=== PATIENT | female | born 1965 | race Caucasian/White ===

== ENCOUNTER 2022-06-01 21:43 | Inpatient (IN) ==
[2022-06-01] MEDS ORDERED: ACETAMINOPHEN 1,000 MG/100 ML VIAL IV STA (21:57)
[2022-06-01] MEDS ORDERED: SODIUM CHLORIDE 0.9% 1000ML 1,000 ML IV SCH (22:00)
[2022-06-01 22:09] LABS: Basophils # (auto) 0.07 K/uL (0-0.2); Basophils % (auto) 0.7 %; Eosinophils % (auto) 2.9 %; Hematocrit (blood only) 33.4 % (34.1-44.9); Hemoglobin 11.7 g/dl (12.0-16.0); Immature Granulocytes # (auto) 0.04 K/uL (0.00-0.02); Immature Granulocytes % (auto) 0.4 %; Lymphocytes # (auto) 1.79 K/uL (1.2-3.4); Lymphocytes % (auto) 17.1 %; Mean Corpuscular Hemoglobin 31.6 pg (25.0-34.0); Mean Corpuscular Volume 90.3 fL (80.0-100.0); Mean Platelet Volume 9.4 fL (9.4-12.3); Monocytes % (auto) 11.5 %; Neutrophils # (auto) 7.06 K/uL (1.4-6.5); Neutrophils % (auto) 67.4 %; Platelet Count 385 K/uL (130-400); RDW Coefficient of Variation 12.1 % (11.5-14.5); RDW Standard Deviation 40.1 fL (36.4-46.3); White Blood Count 10.46 K/ul (4.8-10.8)
[2022-06-01 22:28] LABS: Acetaminophen < 3 ug/ml (10-30); Salicylate < 3.0 mg/dl (3.0-30)
[2022-06-01 22:29] LABS: Albumin Globulin Ratio 1.5 (0.9-2); Albumin Level 4.3 gm/dl (3.4-5.0); BUN Creatinine Ratio 16.2 (10-20); Bilirubin,Total 0.5 mg/dl (0.2-1.0); Calcium 9.4 mg/dl (8.5-10.1); Creatinine Clr Calc Pharmacy 48.5 ml/min; Est GFR (African American) 64.7 ml/min; Est GFR (Non-African American) 55.9 ml/min; Globulin 2.9 gm/dl (2.5-4.0); Potassium 4.3 mmol/L (3.5-5.1); Total Protein 7.2 gm/dl (6.0-8.3)
--- NOTE | 2022-06-01 22:30 | Emergency Department Note ---
History of Present Illness General Chief complaint: Back Injury/Pain Stated complaint: Back Pain, Possible Overdose Time Seen by Provider: 06/01/22 21:47 History of Present Illness Maximum Pain Intensity: 6 This 57-year-old on high-dose narcotics presents to the ER complaining of ongoing back pain who was slow to respond and the boyfriend sent her in for possible overdose Location: Generalized Quality: Painful Severity: Moderate Duration: Ongoing Timing: Ongoing Context: Patient's boyfriend was concerned and sent her in Modifying factors: better with rest; worse with activity Patient is slow to respond and is slurring her words. She states she is always in pain. She is on high-dose narcotics. She is requesting for pain meds now. She denies overdose, chest pain, dyspnea, new trauma. Home Medications Medication Instructions Recorded Confirmed Type acetaminophen 500 mg tablet 500 mg PO DIRECTED PRN Pain 07/09/20 06/01/22 History (Tylenol Extra Strength) ibuprofen 200 mg tablet (Advil) 800 mg PO Q6H PRN Pain, Moderate 07/09/20 06/01/22 History multivit with 1 tab PO DAILY 07/09/20 06/01/22 History wlrwuavn-[id number]-CB-lutein 8 mg iron-400 mcg-300 mcg tablet (Centrum Silver Women) omeprazole magnesium 20 mg 20 mg PO DAILY 07/09/20 06/01/22 History tablet,delayed release (Prilosec OTC) baclofen 20 mg tablet 20 mg PO TID 08/12/20 06/01/22 History calcium carbonate 600 mg-vitamin 1 tab PO DAILY 08/12/20 06/01/22 History D3 5 mcg (200 unit) tablet oxycodone 15 mg tablet 15 mg PO BID 08/12/20 06/01/22 History gabapentin 300 mg capsule 300 mg PO BID 01/17/22 06/01/22 History calcium carbonate 500 mg calcium 1,500 mg PO DAILY 05/21/22 06/01/22 History (1,250 mg) tablet diazepam 5 mg tablet 5 mg PO HS 05/21/22 06/01/22 History famotidine 20 mg tablet (Pepcid) 20 mg PO BID 05/21/22 06/01/22 History tramadol 50 mg tablet 50 mg PO DIRECTED PRN Pain 05/21/22 06/01/22 History Allergies Allergy/AdvReac Type Severity Reaction Status Date / Time sulfamethoxazole Allergy Intermediate Rash Verified 06/01/22 23:01 [From Bactrim] trimethoprim [From Bactrim] Allergy Intermediate Rash Verified 06/01/22 23:01 Penicillins Allergy Unknown CAN'T Verified 06/01/22 23:01 REMEMBER Past Med/Surg History Medical History Acid reflux disease Compression fracture T11-L5 Fracture of T12 vertebra Lumbar disc disease Lump in neck Osteoporosis Surgical History History of esophagogastroduodenoscopy (EGD) History of tonsillectomy Hx of tubal ligation Social History Smoking Status: Never smoker Tobacco Type: Cigarettes Preferred Language: Ug[place] Feels Safe at Home: Yes Review of Systems A total of 10 systems reviewed and were otherwise negative Physical Exam Vital Signs Vital Signs - 24 hr 06/01/22 21:34 06/01/22 21:55 06/01/22 21:53 Temperature 36.7 C Temperature Source Oral Pulse Rate 94 H 86 98 H Pulse Rate [Left Finger] Pulse Rate from SpO2 Sensor 81 Pulse Rhythm Regular Regular Pulse Strength Normal Respiratory Rate 18 20 21 Respiratory Effort / Characteristics Non-Labored Respiratory Depth Normal Respiratory Pattern Regular Blood Pressure 125/90 Blood Pressure [Left Arm] Blood Pressure Mean 101 Blood Pressure Mean [Left Arm] Blood Pressure Position Lying Pulse Oximetry 95 96 98 Oxygen Delivery Method Nasal Cannula Room Air Sepsis Recent Fever Within 48 Hours No Sepsis New/Unexplained Change in Mental Status No Sepsis Action Taken by Nursing No Action Required 06/01/22 22:00 06/02/22 00:33 Temperature Temperature Source Pulse Rate 93 H Pulse Rate [Left Finger] 88 Pulse Rate from SpO2 Sensor 93 H Pulse Rhythm Pulse Strength Respiratory Rate 12 20 Respiratory Effort / Characteristics Respiratory Depth Respiratory Pattern Blood Pressure 125/90 Blood Pressure [Left Arm] 133/79 Blood Pressure Mean 101 Blood Pressure Mean [Left Arm] 97 Blood Pressure Position Pulse Oximetry 96 97 Oxygen Delivery Method Room Air Sepsis Recent Fever Within 48 Hours Sepsis New/Unexplained Change in Mental Status Sepsis Action Taken by Nursing VITALS: Vitals are noted on the nurse's note and reviewed by myself. Vital signs stable. GENERAL: White female who appears overmedicated on narcotics slow to answer questions, in no acute distress, nondiaphoretic, well-developed well-nourished. SKIN: The skin was without rashes, or bruising. There is no tenting of the skin. Capillary reflex less than 2 seconds. HEAD: Normocephalic atraumatic. EARS: External auditory canals clear, EYES: Pupils pinpoint and equal round and reactive to light and accommodation. Conjunctivae without injection, sclerae without icterus. Extraocular movements intact. NOSE: Patent, turbinates without inflammation or discharge MOUTH: Mucous membranes moist. Pharynx without erythema or exudate. Uvula midline. Airway patent. Tongue does not deviate. NECK: Supple without nuchal rigidity. No lymphadenopathy. No thyromegaly. Cervical spine is nontender. No JVD. HEART: Regular rate and rhythm LUNGS: Clear to auscultation bilaterally without wheezes, rales or rhonchi. No retractions or accessory muscle use. ABDOMEN: Positive bowel sounds x 4. Normal tympanic percussion. Soft, nontender, without masses or organomegaly. Castro sign negative. No guarding or rebound tenderness. No CVA tenderness MUSCULOSKELETAL: No muscle atrophy noted. Diffuse thoracic and lumbar tenderness. NEURO: Patient was alert and oriented to person place and time. Normal sensation to light and sharp touch. No focal neurological deficits. Course Administered Medications Discontinued Medications Sodium Chloride (Nss 1000ml) 1,000 mls @ 999 mls/hr IV .Q1H1M NALINI Stop: 06/01/22 23:00 Last Infusion: 06/02/22 01:06 Dose: 0 mls/hr Documented By: Admin: 06/01/22 22:06 Dose: 999 mls/hr Documented By: ANGELO Acetaminophen (Ofirmev) 1,000 mg in 100 mls @ 400 mls/hr IV NOW STA Stop: 06/01/22 22:11 Last Infusion: 06/01/22 22:58 Dose: 0 mls/hr Documented By: Admin: 06/01/22 22:06 Dose: 400 mls/hr Documented By: ANGELO Medical Decision Making Medical Records Attestation: I reviewed the patient's medical records. Home Medications Current Medication List: was personally reviewed by me Laboratory Data Attestation: I reviewed the patient's lab results. Result diagrams: 06/01/22 21:56 06/01/22 21:56 Lab Results 06/01/22 06/01/22 06/01/22 Range/Units 21:56 21:56 21:56 WBC 10.46 (4.8-10.8) K/ul RBC 3.70 L (3.93-5.22) M/uL Hgb 11.7 L (12.0-16.0) g/dl Hct 33.4 L (34.1-44.9) % MCV 90.3 (80.0-100.0) fL MCH 31.6 (25.0-34.0) pg MCHC 35.0 (32.0-36.0) g/dL RDW Std Deviation 40.1 (36.4-46.3) fL RDW Coeff of Barney 12.1 (11.5-14.5) % Plt Count 385 (130-400) K/uL MPV 9.4 (9.4-12.3) fL Immature Gran % (Auto) 0.4 % Neut % (Auto) 67.4 % Lymph % (Auto) 17.1 % [place] % (Auto) 11.5 % Eos % (Auto) 2.9 % Baso % (Auto) 0.7 % Neut # (Auto) 7.06 H (1.4-6.5) K/uL Lymph # (Auto) 1.79 (1.2-3.4) K/uL [place] # (Auto) 1.20 H (0.24-0.82) K/uL Eos # (Auto) 0.30 (0-0.50) K/uL Baso # (Auto) 0.07 (0-0.2) K/uL Immature Gran # (Auto) 0.04 H (0.00-0.02) K/uL Sodium 125 L (136-145) mmol/L Potassium 4.3 (3.5-5.1) mmol/L Chloride 89 L (98-107) mmol/L Carbon Dioxide 27 (21-32) mmol/L Anion Gap 9 (3-11) BUN 18 (6-23) mg/dl Creatinine 1.11 (0.6-1.2) mg/dl Est Cr Clr Drug Dosing 48.5 ml/min Est GFR ( Amer) 64.7 ml/min Est GFR (Non-Af Amer) 55.9 ml/min BUN/Creatinine Ratio 16.2 (10-20) Glucose 88 (70-99(Fasting)) mg/dl Osmolality (280-300) mOsm/kg Calcium 9.4 (8.5-10.1) mg/dl Magnesium 2.0 (1.7-2.4) mg/dl Total Bilirubin 0.5 (0.2-1.0) mg/dl AST 74 H (13-39) U/L ALT 47 (7-52) U/L Alkaline Phosphatase 106 H (34-104) U/L Total Creatine Kinase 1819 H (26-192) U/L Troponin I High Sens 7.2 (0-14) pg/ml Total Protein 7.2 (6.0-8.3) gm/dl Albumin 4.3 (3.4-5.0) gm/dl Globulin 2.9 (2.5-4.0) gm/dl Albumin/Globulin Ratio 1.5 (0.9-2) TSH (0.300-4.500) uIu/ml Salicylates < 3.0 L (3.0-30) mg/dl Acetaminophen < 3 L (10-30) ug/ml Ethyl Alcohol mg/dL (<10.0) mg/dl SARS-CoV-2, RNA, NAAT (NEGATIVE) 06/01/22 06/01/22 06/01/22 Range/Units 21:56 21:56 21:56 WBC (4.8-10.8) K/ul RBC (3.93-5.22) M/uL Hgb (12.0-16.0) g/dl Hct (34.1-44.9) % MCV (80.0-100.0) fL MCH (25.0-34.0) pg MCHC (32.0-36.0) g/dL RDW Std Deviation (36.4-46.3) fL RDW Coeff of Barney (11.5-14.5) % Plt Count (130-400) K/uL MPV (9.4-12.3) fL Immature Gran % (Auto) % Neut % (Auto) % Lymph % (Auto) % [place] % (Auto) % Eos % (Auto) % Baso % (Auto) % Neut # (Auto) (1.4-6.5) K/uL Lymph # (Auto) (1.2-3.4) K/uL [place] # (Auto) (0.24-0.82) K/uL Eos # (Auto) (0-0.50) K/uL Baso # (Auto) (0-0.2) K/uL Immature Gran # (Auto) (0.00-0.02) K/uL Sodium (136-145) mmol/L Potassium (3.5-5.1) mmol/L Chloride (98-107) mmol/L Carbon Dioxide (21-32) mmol/L Anion Gap (3-11) BUN (6-23) mg/dl Creatinine (0.6-1.2) mg/dl Est Cr Clr Drug Dosing ml/min Est GFR ( Amer) ml/min Est GFR (Non-Af Amer) ml/min BUN/Creatinine Ratio (10-20) Glucose (70-99(Fasting)) mg/dl Osmolality 261 L (280-300) mOsm/kg Calcium (8.5-10.1) mg/dl Magnesium (1.7-2.4) mg/dl Total Bilirubin (0.2-1.0) mg/dl AST (13-39) U/L ALT (7-52) U/L Alkaline Phosphatase (34-104) U/L Total Creatine Kinase (26-192) U/L Troponin I High Sens (0-14) pg/ml Total Protein (6.0-8.3) gm/dl Albumin (3.4-5.0) gm/dl Globulin (2.5-4.0) gm/dl Albumin/Globulin Ratio (0.9-2) TSH 1.144 (0.300-4.500) uIu/ml Salicylates (3.0-30) mg/dl Acetaminophen (10-30) ug/ml Ethyl Alcohol mg/dL < 10.0 (<10.0) mg/dl SARS-CoV-2, RNA, NAAT (NEGATIVE) 06/01/22 Range/Units 22:27 WBC (4.8-10.8) K/ul RBC (3.93-5.22) M/uL Hgb (12.0-16.0) g/dl Hct (34.1-44.9) % MCV (80.0-100.0) fL MCH (25.0-34.0) pg MCHC (32.0-36.0) g/dL RDW Std Deviation (36.4-46.3) fL RDW Coeff of Barney (11.5-14.5) % Plt Count (130-400) K/uL MPV (9.4-12.3) fL Immature Gran % (Auto) % Neut % (Auto) % Lymph % (Auto) % [place] % (Auto) % Eos % (Auto) % Baso % (Auto) % Neut # (Auto) (1.4-6.5) K/uL Lymph # (Auto) (1.2-3.4) K/uL [place] # (Auto) (0.24-0.82) K/uL Eos # (Auto) (0-0.50) K/uL Baso # (Auto) (0-0.2) K/uL Immature Gran # (Auto) (0.00-0.02) K/uL Sodium (136-145) mmol/L Potassium (3.5-5.1) mmol/L Chloride (98-107) mmol/L Carbon Dioxide (21-32) mmol/L Anion Gap (3-11) BUN (6-23) mg/dl Creatinine (0.6-1.2) mg/dl Est Cr Clr Drug Dosing ml/min Est GFR ( Amer) ml/min Est GFR (Non-Af Amer) ml/min BUN/Creatinine Ratio (10-20) Glucose (70-99(Fasting)) mg/dl Osmolality (280-300) mOsm/kg Calcium (8.5-10.1) mg/dl Magnesium (1.7-2.4) mg/dl Total Bilirubin (0.2-1.0) mg/dl AST (13-39) U/L ALT (7-52) U/L Alkaline Phosphatase (34-104) U/L Total Creatine Kinase (26-192) U/L Troponin I High Sens (0-14) pg/ml Total Protein (6.0-8.3) gm/dl Albumin (3.4-5.0) gm/dl Globulin (2.5-4.0) gm/dl Albumin/Globulin Ratio (0.9-2) TSH (0.300-4.500) uIu/ml Salicylates (3.0-30) mg/dl Acetaminophen (10-30) ug/ml Ethyl Alcohol mg/dL (<10.0) mg/dl SARS-CoV-2, RNA, NAAT NEGATIVE (NEGATIVE) Imaging Data Attestation: I personally reviewed and interpreted this imaging study as follo ws: MDM Narrative Prior records/ancillary studies reviewed. Triage Nursing notes reviewed. Additional history obtained from EMS. The patient's history was concerning for altered mental status and probable overdose. Differential diagnosis: Etiologies such as toxicologic, infection, hypoglycemia, electrolyte abnormalities, cardiac sources, intracerebral event, neurologic, as well as others were entertained. Physical examination: The patient had No trauma noted. ER treatment provided: IV NSS 1 L bolus Tylenol An order was placed for continuous cardiac monitoring. The monitor shows a rate of 60-100 with a sinus rhythm. On reassessment the patient was stable and improving. Diagnostic interpretation by me: The electrocardiogram was negative for pathologic change. There was no QRS widening or interval prolongation. EKG: Normal sinus, left ventricular hypertrophy, rate in V4. Impression normal sinus rhythm with left ventricular pressure V interpreted by myself I think arrhythmia is unlikely. EKG shows normal sinus rhythm with no interval abnormalities such as QT prolongation or WPW. There are no findings to suggest Brugada syndrome. Cardiac monitoring in the emergency department reveals no tachycardic or bradycardic dysrhythmia. Hypertrophic cardiomyopathy was considered but there are no clear historical elements pointing toward this. EKG is not suggestive. The labs revealed hyponatremia and osmolarity levels ordered Mild anemia Imaging studies: Preliminary Findings Only See Final Report For Complete Findings CT T SPINE: The central compression fracture at T12 level in the anterior wedge compression fracture at T11 level are age-indeterminate but appear to be subacute to chronic in nature. The remaining thoracic vertebral bodies are maintained without compression fracture. There is accentuated kyphosis at the thoracolumbar region. No anterolisthesis or retrolisthesis noted. No significant osseous central canal stenosis. The posterior elements are unremarkable. No significant paraspinal soft tissue abnormality identified. The visualized posterior medial lungs are unremarkable. Radiologist: Jovany Singleton MD CT L SPINE: There are compression fractures involving all lumbar vertebral bodies and the thoracic spine, which are new from the CT examination dated 07/31/2006. However, the compression fractures are age indeterminant and presumed subacute to chronic without obvious acute fracture line noted. No anterolisthesis or retrolisthesis. The pedicles and posterior elements demonstrate no acute abnormality. The intervertebral disks are predominantly maintained. However, there is a suggestion of annular disc bulge at L4-5 and L5-S1. No obvious protrusion, accounting for limitations with lack of intrathecal contrast. No obvious severe osseous neural foraminal encroachment noted. Facet hypertrophic changes noted inferiorly. No significant paraspinal soft tissue abnormality identified. Radiologist: Jovany Singleton MD Consultation: A consultation was placed with the hospitalist. The case was discussed and diagnostics were reviewed. The patient was evaluated in the ER for further treatment. This appears to be consistent with hyponatremia who seems overmedicated on her narcotics. Family is asking that the patient be admitted. I felt this is reasonable. She is having issues with her pain medication. The family is also advised to have Narcan at home. They were informed is [id number]. Medicine is consulted. Patient will be evaluated for admission. By the evaluation outlined above emergent etiologies such as infection, hypoglycemia, electrolyte abnormalities, cardiac sources, intracerebral event, neurologic,as well as others were deemed relatively unlikely. The pt informed about the findings as listed above. All questions were answered and pleased with the treatment. The chart was completed utilizing [email or web address] Speech voice recognition software. Grammatical errors, random word insertions, pronoun errors, and incomplete sentences are an occassional consequence of this system due to software limitations, ambient noise, and hardware issues. Any formal questions or concerns about the content, text, or information contained within the body of this dictation should be directly addressed to the physician historian research assistant for clarification. Impression & Plan Acute hyponatremia, Back pain Discharge Plan Visit Data Chief Complaint: Back Injury/Pain Stated Complaint: Back Pain, Possible Overdose ED Provider: Renita Thomas ED Midlevel Provider: Shanna Salmeron Discharge Problem: Acute hyponatremia, Back pain Patient Disposition: Admitted As Inpatient Condition: Fair Forms Stand Alone Forms: [facility] [employer] Prescriptions Prescriptions: No Action gabapentin 300 mg capsule 300 mg PO BID omeprazole magnesium [Prilosec OTC] 20 mg Tablet,Delayed Release (Dr/Ec) 20 mg PO DAILY Centrum Silver Women 8 mg iron-400 mcg-300 mcg Tablet 1 tab PO DAILY acetaminophen [Tylenol Extra Strength] 500 mg Tablet 500 mg PO DIRECTED PRN (Reason: Pain) ibuprofen [Advil] 200 mg Tablet 800 mg PO Q6H PRN (Reason: Pain, Moderate) baclofen 20 mg tablet 20 mg PO TID oxycodone 15 mg tablet 15 mg PO BID calcium carbonate-vitamin D3 600 mg(1,500mg) -200 unit tablet 1 tab PO DAILY tramadol 50 mg Tablet 50 mg PO DIRECTED PRN (Reason: Pain) famotidine [Pepcid] 20 mg Tablet 20 mg PO BID calcium carbonate [Calcium 500] 500 mg calcium (1,250 mg) Tablet 1,500 mg PO DAILY diazepam 5 mg tablet 5 mg PO HS Referrals Referrals: Amrita Jara DO [Primary Care Provider] -
[2022-06-01 22:35] LABS: Troponin I High Sensitivity 7.2 pg/ml (0-14)
[2022-06-02 03:34] LABS: Appearance Urine Clear (Clear); Bilirubin Urine Negative (Negative); Blood Urine Negative (Negative); Color Urine Yellow; Glucose Urine UA Negative (Negative); Ketones Urine 1+ (Negative); Leukocyte Esterase Urine Negative (Negative); Nitrite Urine Negative (Negative); Protein Urine Negative (Negative); Specific Gravity Urine 1.008 (1.000-1.030); Urobilinogen Urine Negative (Negative)
[2022-06-02 04:20] LABS: Amphetamines+Metham, Urine Neg (Neg); Barbiturates, Urine Neg (Neg); Benzodiazepine, Urine Pos (Neg); Cocaine, Urine Neg (Neg); MDMA (Ecstacy), Urine Neg (Neg); Methadone, Urine Neg (Neg); Opiate, Urine Pos (Neg); Phencyclidine, Urine Neg (Neg)
[2022-06-02] MEDS ORDERED: POLYETHYLENE (MIRALAX) 17 GM PACK PO PRN (04:42)
[2022-06-02] MEDS ORDERED: SODIUM CHLORIDE 0.9% 1000ML 1,000 ML IV SCH (04:42)
[2022-06-02] MEDS ORDERED: NITROGLYCERIN SL 0.4 MG/TAB TAB SL PRN (04:42)
[2022-06-02] MEDS ORDERED: ACETAMINOPHEN 325 MG TAB PO PRN (04:42)
--- NOTE | 2022-06-02 05:14 | History and Physical Report ---
DATE OF ADMISSION: 06/02/2022. CHIEF COMPLAINT: Back pain, hyponatremia, somewhat lethargic. HISTORY OF PRESENT ILLNESS: This is a 57-year-old female with past medical history significant for GERD, history of kidney stones, osteoporosis with pathological fractures, chronic back pain, tobacco use disorder, who presents complaining of back pain and her boyfriend brought her to the hospital, as she was slow to respond, for possible overdose. The patient is on MS Contin 15 mg p.o. b.i.d., tramadol as needed, baclofen, Advil for pain medications. She also recently started on diazepam. The patient is somewhat crouching on the bed. She says in this position, her back pain is okay, but whenever she starts moving and ambulating, the pain is severe. She is somewhat drowsy, has to wake up frequently to give the answers, but when she answers she is answering appropriately. Denies any fevers, no chest pain, no shortness of breath, no cough, no nausea. Normal bowel and bladder movements. No incontinence. No swelling in the legs. Appetite is okay. No runny nose, no sore throat. Hemodynamics are okay in the ER.denies taking any extra medication ALLERGIES: BACTRIM AND PENICILLIN. PAST MEDICAL HISTORY: As mentioned above. PAST SURGICAL HISTORY: EGDs, ligation of the oviduct, abdominal laparoscopy for endometriosis. MEDICATIONS: The patient is on Tylenol Extra Strength 500 mg p.r.n., baclofen 20 mg p.o. t.i.d., calcium plus vitamin D one tablet daily, diazepam 5 mg p.o. at bedtime, Pepcid 20 mg p.o. b.i.d., gabapentin 300 mg p.o. b.i.d., Advil 800 mg p.o. q. 6 hours p.r.n., multivitamins 1 tablet p.o. daily, omeprazole 20 mg p.o. daily, oxycodone 15 mg p.o. b.i.d., tramadol 50 mg p.o. p.r.n. FAMILY HISTORY: Significant for father has diabetes, hip replacement; mother has hip replacement and diabetes; paternal aunt has ovarian cancer; cousin has breast cancer. SOCIAL HISTORY: Smokes half pack a day for last 10 years. Alcohol, daily wine. No drug use. REVIEW OF SYSTEMS: As per HPI. Rest of the review of systems is negative. PHYSICAL EXAMINATION: GENERAL: The patient is of moderate built, somewhat drowsy, alert. VITAL SIGNS: Temperature 36.7, pulse 88, respiratory rate 20, blood pressure 133/79, oxygen 97% on room air. HEENT: Difficult to examine as the patient is crouching and not lifting her head up. No trauma seen. No facial droop seen. NECK: No JVD or neck masses. CARDIOVASCULAR: S1 and S2 heard. Regular rate and rhythm. No murmur, no gallop. RESPIRATORY SYSTEM: Normal AP diameter. No accessory muscle use. No wheezing or crackles. ABDOMEN: Soft, bowel sounds present, nontender, no distention. CENTRAL NERVOUS SYSTEM: Drowsy, but arousable, and alert when aroused, answering appropriately. Obeys simple commands. Moves extremities. EXTREMITIES: No obvious edema or erythema seen. LABORATORY DATA: WBC 10.4, hemoglobin 11.7, hematocrit 33.4, platelets 385. Sodium 125, potassium 4.3, chloride 89, bicarbonate 27, BUN 18, creatinine 1.1, serum glucose 88. Serum osmolality 261, calcium 9.4, magnesium 2, total bilirubin 0.5, AST 74, ALT 47, alkaline phosphatase 106, total creatine kinase 1819. Troponin I high sensitivity 7.2. TSH 1.4. Salicylate less than 3, acetaminophen less than 3. Ethyl alcohol less than 10. SARS-CoV-2 rapid test negative. IMAGING DATA: Thoracic spine CT, preliminary report, no acute findings. Subacute to chronic fracture in the T12 and T11 level. Lumbar spine CT, preliminary report, compression fractures involving all lumbar vertebral bodies . Possibly these fractures are subacute to chronic. Chest x-ray, no obvious acute findings. EKG: Normal sinus rhythm at a rate of 94. Right atrial enlargement. Voltage criteria for left ventricular hypertrophy. ASSESSMENT AND PLAN: This is a 57-year-old female who presents with severe back pain and some drowsiness and hyponatremia. 1. Drowsiness: Boyfriend was concerned about overdose. Er ordered _ urine drug screen. The patient is on OxyCodone 15 mg p.o. b.i.d. at home and tramadol, gabapentin, and baclofen. The patient denies taking any extra doses, but drowsy, somewhat difficult to keep her aroused. Will hold her home p.o. pain medications for now. Get an ABG and CT head- which are unremarkable. Monitor in the tele floor. 2. Severe back pain: Holding her home pain medication as above. Consult pain management in the a.m. for further recommendations. PT, OT when stable. Imaging studies are showing subacute to chronic spine fractures. Will follow the final report of the CAT scans. 3. Hyponatremia: Probably pain induced, but the patient also has elevated CK levels at 1800s. Probable mild rhabdomyolysis. Seems she received 1 L of fluid in the ER, will continue with normal saline 75 mL per hour for now. Follow urine osmolality and urine sodium levels. Consult nephrology in the a.m. for further fluid recommendations. Will follow BMP q. 6 hours. 4. History of gastroesophageal reflux disease: On omeprazole. 5. Tobacco use disorder: Needs counseling. 6. Alcoholism, looks like daily wine as per Epic. We need to confirm with the patient is more awake. DISPOSITION: Closely monitor in the tele floor. Level 1 full code. PT/OT prior to discharge. Social service to help with discharge planning. Job ID: [id number] [facility]
[2022-06-02 06:08] LABS: Basophils # (auto) 0.07 K/uL (0-0.2); Basophils % (auto) 0.9 %; Eosinophils # (auto) 0.35 K/uL (0-0.50); Eosinophils % (auto) 4.5 %; Hematocrit (blood only) 32.3 % (34.1-44.9); Hemoglobin 11.4 g/dl (12.0-16.0); Immature Granulocytes # (auto) 0.04 K/uL (0.00-0.02); Immature Granulocytes % (auto) 0.5 %; Lymphocytes # (auto) 1.79 K/uL (1.2-3.4); Mean Corpuscular Hemoglobin 31.7 pg (25.0-34.0); Mean Corpuscular Hgb Conc 35.3 g/dL (32.0-36.0); Mean Corpuscular Volume 89.7 fL (80.0-100.0); Mean Platelet Volume 9.4 fL (9.4-12.3); Monocytes # (auto) 0.89 K/uL (0.24-0.82); Monocytes % (auto) 11.5 %; Neutrophils # (auto) 4.63 K/uL (1.4-6.5); Neutrophils % (auto) 59.6 %; Platelet Count 348 K/uL (130-400); RDW Coefficient of Variation 11.9 % (11.5-14.5); RDW Standard Deviation 39.7 fL (36.4-46.3); White Blood Count 7.77 K/ul (4.8-10.8)
[2022-06-02 06:13] LABS: Base Excess ABG 4.9 mEq/L (-9-1.8); HCO3 ABG 29 mmol/L (19-24); Oxygen Saturation ABG 97.5 % (90-95); PCO2 ABG 41 mmHg (35-46); PO2 ABG 75 mmHg (80-95); pH ABG 7.46 (7.35-7.45)
[2022-06-02 06:30] LABS: Allen Test Pos (Pos)
--- NOTE | 2022-06-02 06:31 | CT Scan Report ---
CT OF THE HEAD WITHOUT CONTRAST CLINICAL HISTORY: Altered mental status. COMPARISON STUDY: No previous studies for comparison. CT DOSE: 614.27 mGy.cm TECHNIQUE: Helical axial images of the head were obtained without IV contrast. Automated exposure con trol was utilized for the study. A dose lowering technique was utilized adhering to the principles o f ALARA. FINDINGS: No acute intracranial hemorrhage, midline shift or mass effect is present. The ventricular system is unremarkable. The basal cisterns are patent. No extra-axial collections are present. There are no findings to suggest acute dural sinus thrombosis or acute territorial infarct. No significant calvarial abnormalities are present. There is minimal sinus mucosal thickening. IMPRESSION: No acute intracranial findings. ACT 112: Negative or not required by law. Electronically signed by: Daniele Steiner M.D. 06/02/2022 6:28 AM
[2022-06-02 06:46] LABS: BUN Creatinine Ratio 18.8 (10-20); Calcium 8.4 mg/dl (8.5-10.1); Creatinine Clr Calc Pharmacy 84.2 ml/min; Est GFR (African American) 116.4 ml/min; Est GFR (Non-African American) 100.5 ml/min; Magnesium 1.8 mg/dl (1.7-2.4); Potassium 3.7 mmol/L (3.5-5.1)
--- NOTE | 2022-06-02 08:15 | CT Scan Report ---
LUMBAR SPINE CT CT DOSE: 1023.67 mGy.cm HISTORY: Low back pain. severe pain, hx compression fx TECHNIQUE: Multiaxial CT images of the lumbar spine were performed and reformatted in the sagittal an d coronal plane without the use of contrast. A dose lowering technique was utilized adhering to the principles of ALARA. COMPARISON: Lumbar spine radiograph 05/21/2022. FINDINGS: Multiple compression deformities are again seen throughout the lower thoracic and lumbar sp ine. These are similar to the prior radiograph. These are technically age indeterminate but favor chr onic compression deformities. No significant paravertebral edema. There may be mild presacral edema w ith evidence of a subacute/healing sacral insufficiency fracture involving the S2 vertebral body and vital sacral wings. No high-grade central canal stenosis. IMPRESSION: 1. Compression fractures throughout all of the lower thoracic and lumbar spine vertebral bodies. Thes e are technically age indeterminate but likely chronic. 2. Sacral insufficiency fracture which appears subacute. ACT 112: Negative or not required by law. Electronically signed by: Jin Murphy M.D. 06/02/2022 8:12 AM
--- NOTE | 2022-06-02 08:30 | XRay Report ---
XR chest 1V portable HISTORY: Weakness. COMPARISON: None. FINDINGS: There are low lung volumes. No pneumothorax. No pleural effusions. Vascular crowding/atelec tasis noted at the lung bases. The heart is normal in size. No focal lung consolidations to suggest a pneumonia. No evidence for pulmonary edema. Sclerotic focus within the left humeral neck favors a be nign cartilaginous lesion. IMPRESSION: No acute process. ACT 112: Negative or not required by law. Electronically signed by: Jin Murphy M.D. 06/02/2022 8:29 AM
[2022-06-02] MEDS ORDERED: POTASSIUM CHLORIDE CRTAB 20 MEQ TABCR PO STA (09:50)
[2022-06-02] MEDS: PANTOprazole 40 MG TAB PO SCH (10:00)
[2022-06-02] MEDS: CEROVITE ADV FORMULA TAB PO SCH (10:00)
[2022-06-02] MEDS: GABAPENTIN 300 MG CAP PO SCH ×2 (10:00→20:59)
[2022-06-02] MEDS: FAMOTIDINE 20 MG TAB PO SCH ×2 (10:00→20:59)
[2022-06-02] MEDS: CALCIUM CARBONATE 1250MG TAB PO SCH (10:00)
[2022-06-02] MEDS: BACLOFEN 20 MG TAB PO SCH ×3 (10:00→20:59)
[2022-06-02] MEDS: MAGNESIUM OXIDE 400 MG TAB PO SCH (10:00)
[2022-06-02] MEDS: CALCIUM 600MG + VIT D 400 IU TAB PO SCH (10:00)
--- NOTE | 2022-06-02 10:28 | CT Scan Report ---
CT OF THE THORACIC SPINE CLINICAL HISTORY: severe pain, hx compression fx COMPARISON STUDY: Thoracic spine radiographs May 21, 2022. TECHNIQUE: Helical axial images of the thoracic spine were obtained. Sagittal and coronal reconstru ctions were viewed. Automated exposure control was utilized for the study. A dose lowering techniqu e was utilized adhering to the principles of ALARA. FINDINGS: This exam was compromised due to difficulty positioning. There is exaggerated kyphosis of t he thoracic spine. There is severe compression fractures of T10 and T11. There is a moderate T12 comp ression fracture. These fractures are likely old. There is minimal retropulsion of the superior endpl ate of T11. Lumbar spine fractures are better depicted on the lumbar spine CT. No acute thoracic spin e fracture is noted. The central canal and neural foramen are suboptimally assessed given CT techniqu e. Mild multilevel degenerative changes are present. No significant abnormalities are identified with in visualized portions of the lungs. No acute fractures within the posterior ribs are identified. IMPRESSION: 1. Numerous lower thoracic spine compression fractures, as described above. Although technically age indeterminate, these are likely old. No acute thoracic spine fracture. Exaggerated kyphosis. 2. Numerous lumbar spine fractures, better depicted on the lumbar spine CT. ACT 112: Negative or not required by law. Electronically signed by: Daniele Steiner M.D. 06/02/2022 10:26 AM
[2022-06-02] MEDS ORDERED: traMADol HCL 50 MG TABLET PO STA (11:29)
[2022-06-02 11:38] LABS: BUN Creatinine Ratio 17.2 (10-20); Calcium 9.3 mg/dl (8.5-10.1); Creatinine Clr Calc Pharmacy 92.9 ml/min; Est GFR (African American) 120.3 ml/min; Est GFR (Non-African American) 103.8 ml/min; Potassium 3.9 mmol/L (3.5-5.1)
--- NOTE | 2022-06-02 12:17 | Pain Management Consultation ---
Date of Consultation June 02, 2022 Assessment & Plan (1) Compression fracture: (2) Opiate misuse: (3) Back pain: (4) Osteoporosis: Plan 1. Pain service has nothing interventional to offer the patient regarding her pain complaints 2. Would recommend discontinuation of tramadol and initiation of hydrocodone 7.5/325 1 tablet p.o. every 4 hours. Will also discontinue her separate acetaminophen order. 3. Patient will continue with ongoing discussion with her outpatient prescriber regarding her opiate therapy. Patient does admit to some misuse of her opiates due to her poor pain control recently the day of admission with altered mental status likely taking extra oxycodone and tramadol ER. Review of PDMP revealed that patient has not had Oxy IR filled since 04/11/2022 with 12 tablets only. She appears to have a stash of Oxy IR at home. We discussed that it is inappr opriate to utilize opiate therapy that is not prescribed or take the prescribed medication as not prescribed. We discussed the concerns over mixing opiate therapies. Would recommend patient be prescribed Narcan for home utilization with instructions provided for the patient and her boyfriend. She denies any use of benzodiazepines although her initial urine toxicology screen was positive for benzodiazepine use. Consider involvement with behavioral health to further address potential underlying anxiety/depressive disorders contributing to her poor pain control. 4. Recommend evaluation by orthotics for consideration of thoracolumbar bracing due to her multiple compression fractures Thank you for allowing us to participate in the care of Mrs. Kay History of Present Illness Reason for Consultation: Acute on chronic low back pain Requesting Physician: Nickolas Valle MD Attending Physician: Harley Boateng MD History of Present Illness Mrs. Kay is a 57-year-old white female who presented emergently on 06/01/2022 with altered mental status with concerns over overdose. Patient has history of multiple thoracic and lumbar compression fractures and has ongoing difficulties with chronic low back pain. She was reporting some increased pain complaints and is prescribed tramadol ER 100 mg 3 times daily in the outpatient setting. She also reports utilization of leftover Oxy IR 2-3 times daily on most days. She reports use of these medications the day she presented with her altered mental status. She believes that she took 1 or 2 extra tablets but is unable to definitively report. She has been working with her PCP in the outpatient setting with her medications. She reports the recent transition to tramadol ER has been ineffective at improving her pain control and if anything her pain has been worse. Her pain is 100% axial in the thoracic or lumbar junction and lower lumbar region with some radiation into the gluteal and hips. She denies any true radicular pattern to her pain. She reports frequent episodes of falling in the home and does utilize a single-point cane. She denies bowel or bladder incontinence or saddle anesthesia. She continues to follow-up with rheumatology with Dr. De Guzman in the outpatient setting for treatment of her osteoporosis and compression fractures. She does not have Narcan prescribed for home utilization. She reports rare difficulties with constipation. She reports prior use of Oxy IR was beneficial at controlling her pain on most days. 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 Patient was evaluated in the outpatient setting by [facility] suzette Burgos PA-C in January. There was no recommendation for interventional treatment at that time and recommendations were made regarding medical management. Patient reports that her PCP attempted to obtain Nucynta therapy but it was too expensive. She does utilize baclofen 20 mg 3 times daily and gabapentin 300 mg twice daily on most days. She was also prescribed diazepam by Dr. Álvarez, but patient reports that she ran out of this medication a few weeks ago. She denies use of diazepam the day of her admission. She denies use of illicit drugs. She does consume alcohol in the outpatient setting. Patient rates her pain an 8-10/10. Her pain is aching, dull and episodically sharp with movement. She reports inability to lie supine. She does find some moderate benefit from ice and heat. Patient denies bowel or bladder incontinence or saddle anesthesia. Plan of care discussed with Dr. Lucia Hargrove. Pain Assessment Full Body Front + Back: 1. Thoracolumbar junction through the lumbosacral junction axial pain 2. Pain radiating to gluteal and hip region 3. Pain radiating to gluteal and hip region Allergies Allergy/AdvReac Type Severity Reaction Status Date / Time sulfamethoxazole Allergy Intermediate Rash Verified 06/01/22 23:01 [From Bactrim] trimethoprim [From Bactrim] Allergy Intermediate Rash Verified 06/01/22 23:01 Penicillins Allergy Unknown CAN'T Verified 06/01/22 23:01 REMEMBER Home Medications Medication Instructions Recorded Confirmed Type acetaminophen 500 mg tablet 500 mg PO DIRECTED PRN Pain 07/09/20 06/01/22 History (Tylenol Extra Strength) ibuprofen 200 mg tablet (Advil) 800 mg PO Q6H PRN Pain, Moderate 07/09/20 06/01/22 History multivit with 1 tab PO DAILY 07/09/20 06/01/22 History yczhlklg-kknr-IE-lutein 8 mg iron-400 mcg-300 mcg tablet (Centrum Silver Women) omeprazole magnesium 20 mg 20 mg PO DAILY 07/09/20 06/01/22 History tablet,delayed release (Prilosec OTC) baclofen 20 mg tablet 20 mg PO TID 08/12/20 06/01/22 History calcium carbonate 600 mg-vitamin 1 tab PO DAILY 08/12/20 06/01/22 History D3 5 mcg (200 unit) tablet oxycodone 15 mg tablet 15 mg PO BID 08/12/20 06/01/22 History gabapentin 300 mg capsule 300 mg PO BID 01/17/22 06/01/22 History calcium carbonate 500 mg calcium 1,500 mg PO DAILY 05/21/22 06/01/22 History (1,250 mg) tablet diazepam 5 mg tablet 5 mg PO HS 05/21/22 06/01/22 History famotidine 20 mg tablet (Pepcid) 20 mg PO BID 05/21/22 06/01/22 History tramadol 50 mg tablet 50 mg PO DIRECTED PRN Pain 05/21/22 06/01/22 History Patient History Medical History (Updated 06/02/22 @ 12:21 by Josué Paul PA-C) Acid reflux disease Compression fracture T11-L5 Fracture of T12 vertebra Lumbar disc disease Lump in neck Opiate misuse Osteoporosis Surgical History History of esophagogastroduodenoscopy (EGD) History of tonsillectomy Hx of tubal ligation Social History Smoking Status: Current every day smoker Tobacco Type: Cigarettes Hx Alcohol Use: Yes Hx Substance Use: No Preferred Language: Danish Communication Ability: Effective Loader Operator/Ground Leader Required: No Beliefs That Will Affect Care: None Current Living Situation: Significant Other Other Information That Helps Us Care for You: No Feels Safe at Home: Yes Safety Concerns: Feels Safe At This Time Assistive Devices: Cane and Walker Physical Exam Physical Exam: General: Patient sitting up quietly in exam room in no acute distress. Speech and thought process appropriate. Mood and affect appropriate. Cognition intact. Patient alert and oriented x3. Head: Normocephalic and atraumatic. ENT: No evidence of nasal or oral mucosal lesions. Mucous membranes are moist. Eyes: Pupils equal round reactive to light. Neck: Supple without adenopathy and full range of motion. Chest: Nontender to palpation of the costosternal junction. Abdomen: Soft and nondistended. No organomegaly. Bowel sounds active. Back/spine: Patient is tender over the midline to palpation and percussion predominately over the thoracolumbar junction. Moderately tender in the paravertebral musculature of the lower thoracic and entire lumbar regions. Patient is tender to palpation in the gluteal musculature bilaterally. Minimal spasm. Lower extremities: SLR negative bilaterally. Strength testing 5/5 with dorsiflexion, plantarflexion, EHL testing and hip flexion/extension. Slight i ncrease in axial pain with resisted hip flexion and extension. Sensation intact without deficit. No appreciable edema. Neurologic: Cranial nerves grossly intact. Ambulatory function not witnessed. Results (Pain Clinic) Diagnostic Review CT Findings: [place], [place] [phone] CT Scan Report Patient:TANIA KAY Admit Date:06/02/22 MR#:[id number] Address1:[address] [place] [address] Acct ID:[id number] Address2: Date:1965 [facility] Zip:[place] [address] Age:57 Location:[facility] Sex:F Room/Bed:[facility] 1-10 Att Phy:Harley Boateng MD Diagnosis:BACK PAIN Maria Del Carmen Phy:Amrita Jara DO Service Date:06/01/22 Fam Phy: Interpreting Phy:Jin Murphy MDAit Phy:Nickolas Valle MD Ordering Phy:Shanna Salmeron PA-C cc: ~ LUMBAR SPINE CT CT DOSE: 1023.67 mGy.cm HISTORY: Low back pain. severe pain, hx compression fx TECHNIQUE: Multiaxial CT images of the lumbar spine were performed and reforma tted in the sagittal and coronal plane without the use of contrast. A dose lowering technique was utilized adhering to the principles of ALARA. COMPARISON: Lumbar spine radiograph 05/21/2022. FINDINGS: Multiple compression deformities are again seen throughout the lower thoracic and lumbar spine. These are similar to the prior radiograph. These are technically age indeterminate but favor chronic compression deformities. No significant paravertebral edema. There may be mild presacral edema with evidence of a subacute/healing sacral insufficiency fracture involving the S2 vertebral body and vital sacral wings. No high-grade central canal stenosis. IMPRESSION: 1. Compression fractures throughout all of the lower thoracic and lumbar spine vertebral bodies. These are technically age indeterminate but likely chronic. 2. Sacral insufficiency fracture which appears subacute. ACT 112: Negative or not required by law. Electronically signed by: Jin Murphy M.D. 06/02/2022 8:12 AM Dictated:06/02/22 08 Transcribed: 06/02/22 0809 [place], [place] [phone] CT Scan Report Patient:TANIA KAY Admit Date:06/02/22 MR#:[id number] Address1:[address] [place] [address] Acct ID:[id number] Address2: Date:1965 [facility] [place] [id number] Age:57 Location:[facility] Sex:F Room/Bed:[place] [address] Att Phy:Harley Boateng MD Diagnosis:BACK PAIN Maria Del Carmen Phy:Amrita Jara DO Service Date:06/01/22 Fam Phy: Interpreting Phy:Daniele Steiner [facility] Phy:Nickolas Valle MD Ordering Phy:Shanna Salmeron PA-C cc: ~ CT OF THE THORACIC SPINE CLINICAL HISTORY: severe pain, hx compression fx COMPARISON STUDY: Thoracic spine radiographs May 21, 2022. TECHNIQUE: Helical axial images of the thoracic spine were obtained. Sagittal and coronal reconstructions were viewed. Automated exposure control was utilized for the study. A dose lowering technique was utilized adhering to the principles of ALARA. FINDINGS: This exam was compromised due to difficulty positioning. There is exaggerated kyphosis of the thoracic spine. There is severe compression fractures of T10 and T11. There is a moderate T12 compression fracture. These fractures are likely old. There is minimal retropulsion of the superior endplate of T11. Lumbar spine fractures are better depicted on the lumbar spine CT. No acute thoracic spine fracture is noted. The central canal and neural foramen are suboptimally assessed given CT technique. Mild multilevel degenerative changes are present. No significant abnormalities are identified within visualized portions of the lungs. No acute fractures within the posterior ribs are identified. IMPRESSION: 1. Numerous lower thoracic spine compression fractures, as described above. Although technically age indeterminate, these are likely old. No acute thoracic spine fracture. Exaggerated kyphosis. 2. Numerous lumbar spine fractures, better depicted on the lumbar spine CT. ACT 112: Negative or not required by law. Electronically signed by: Daniele Steiner M.D. 06/02/2022 10:26 AM Dictated:06/02/22 0901 Transcribed: 06/02/22905 Previous Records Review Previous Records: personally reviewed by
[2022-06-02] MEDS: HYDROCODONE/ACETAMINOPHEN 7.5/325MG TAB PO PRN ×3 (13:46→23:49)
[2022-06-02 17:27] LABS: BUN Creatinine Ratio 18.4 (10-20); Est GFR (African American) 127.1 ml/min; Est GFR (Non-African American) 109.7 ml/min; Potassium 4.3 mmol/L (3.5-5.1)
[2022-06-02] MEDS: diazePAM 5 MG TABLET PO SCH (20:59)
[2022-06-02] MEDS ORDERED: SODIUM CHLORIDE 0.9% 1000ML 1,000 ML IV ONE (23:02)
[2022-06-03 00:07] LABS: Calcium 8.9 mg/dl (8.5-10.1); Creatinine Clr Calc Pharmacy 114.7 ml/min; Est GFR (African American) 128.9 ml/min; Est GFR (Non-African American) 111.2 ml/min; Potassium 3.6 mmol/L (3.5-5.1)
[2022-06-03] MEDS ORDERED: NYSTATIN OINT 15 GM TUBE EXT SCH (05:25)
--- NOTE | 2022-06-03 06:43 | Electrocardiogram Report ---
Test Reason : Blood Pressure : / mmHG Vent. Rate : 094 BPM Atrial Rate : 094 BPM P-R Int : 154 ms QRS Dur : 088 ms QT Int : 358 ms P-R-T Axes : 036 -11 045 degrees QTc Int : 447 ms Normal sinus rhythm Right atrial enlargement Voltage criteria for left ventricular hypertrophy Abnormal ECG No previous ECGs available Confirmed by Jatin Rivero ([id number]) on 06/03/2022 6:42:42 AM Referred By: REFERRED SELF Confirmed By:Jatin Rivero
--- NOTE | 2022-06-03 07:25 | Hospitalist Progress Note ---
Date of Service June 03, 2022 Assessment & Plan (1) Back pain: (2) Opiate misuse: (3) Fall: Plan: This is a 57-year-old female who presents with severe back pain and some drowsiness and hyponatremia. 1. Drowsiness: Boyfriend was concerned about overdose. Er ordered _ urine drug screen. The patient is on OxyCodone 15 mg p.o. b.i.d. at home and tramadol, gabapentin, and baclofen. On admission drowsy, somewhat difficult to keep aroused. ABG and CT head- which are unremarkable. Monitor in the tele floor. Patient reported taking oxycodone and tramadol together, and reports she never did that before, now alert oriented answering questions appropriately. Stopped tramadol and oxycodone. Continue gabapentin, baclofen. Pain management was consulted, started patient on hydrocodone/acetaminophen Patient is uncomfortable, reports that her pain is not controlled - increased dose of hydrocodone 2. Severe back pain: CT Imaging studies are showing subacute to chronic spine fractures. Pain management consulted, as above. Orthotics consulted - lso brace, donut/waffle PT/OT 3. Hyponatremia: Probably pain induced, but the patient also has elevated CK levels at 1800s on admission Probable mild rhabdomyolysis. Received IV fluids on admission, sodium level improved overnight. CK also much improved. Nephrology consult was canceled. Continue to monitor BMP and CK 4. History of gastroesophageal reflux disease: On omeprazole. 5. Tobacco use disorder: counseling. 6. Alcoholism, looks like daily wine as per [employer]. Will discuss further w/ pt. patient is currently on gabapentin 300 3 times daily. No withdrawal symptoms. DISPOSITION: Closely monitor in the tele floor. PT/OT prior to discharge. Code: full code. Admission and Anticipated Discharge Date Admission Date: June 02, 2022 Subjective Pt seen in follow up of back pain, hyponatremia Hyponatremia already much improved Seen by pain management on admission Patient reports that she fell and was drowsy because she took oxycodone and tramadol together. She says she never does that and did not realize it would make her that the drowsy. Switched to hydrocodone by pain management. However patient is complaining that her pain is not controlled and asking to increase dose. She is alert oriented, answering appropriately and looks uncomfortable due to pain Review of Systems Review of Systems: All systems reviewed & are unremarkable except as noted in Subjective Physical Exam Physical Exam: GENERAL: The patient is of moderate built, in NAD, but seems uncomfortable due to pain HEENT:NC, EOMI NECK: No JVD or neck masses. CARDIOVASCULAR: S1 and S2 heard. Regular rate and rhythm. No murmur, no gallop. RESPIRATORY: Normal AP diameter. No accessory muscle use. No wheezing or crackles. ABDOMEN: Soft, bowel sounds present, nontender, no distention. NEURO:Awake and alert, answering appropriately, moves extremities EXTREMITIES: No obvious edema or erythema seen. Results & Data Results & Data ([facility]) Vital Signs (Past 12 Hours) Vital Signs Temp Pulse Pulse Resp BP Pulse Ox O2 Del Method 06/03/22 03:43 36.6 C 92 H 18 147/83 H 96 Room Air 06/03/22 00:00 89 06/02/22 22:31 36.4 C L 77 18 156/98 H 97 Room Air Laboratory Results 06/03/22 06/03/22 06/02/22 Range/Units 08:03 08:03 Unknown WBC 6.69 (4.8-10.8) K/ul RBC 3.60 L (3.93-5.22) M/uL Hgb 11.1 L (12.0-16.0) g/dl Hct 32.1 L (34.1-44.9) % MCV 89.2 (80.0-100.0) fL MCH 30.8 (25.0-34.0) pg MCHC 34.6 (32.0-36.0) g/dL RDW Std Deviation 39.2 (36.4-46.3) fL RDW Coeff of Barney 12.0 (11.5-14.5) % Plt Count 394 (130-400) K/uL MPV 9.0 L (9.4-12.3) fL Sodium 135 L (136-145) mmol/L Potassium 3.3 L (3.5-5.1) mmol/L Chloride 99 (98-107) mmol/L Carbon Dioxide 29 (21-32) mmol/L Anion Gap 7 (3-11) BUN 8 (6-23) mg/dl Creatinine 0.46 L (0.6-1.2) mg/dl Est Cr Clr Drug Dosing 117.1 ml/min Est GFR ( Amer) 129.8 ml/min Est GFR (Non-Af Amer) 112.0 ml/min BUN/Creatinine Ratio 17.4 (10-20) Glucose 91 (70-99(Fasting)) mg/dl Calcium 8.2 L (8.5-10.1) mg/dl Total Creatine Kinase 546 H (26-192) U/L U Codeine Confrm GC/MS NEGATIVE (<50) ng/mL Ur Morphine (GC/MS) NEGATIVE (<50) ng/mL Ur Hydrocodone (GC/MS) NEGATIVE (<50) ng/mL Ur Norhydrocodone NEGATIVE (<50) ng/mL Ur Noroxycodone 5740 H (<50) ng/mL Urine Oxycodone (GC/MS) 2240 H (<50) ng/mL U Oxymorphone GC/MS 1220 H (<50) ng/mL Ur Hydromorphone (GC/MS) NEGATIVE (<50) ng/mL U OH-Alprazolam Confrm NEGATIVE (<25) ng/mL 7-Amino Clonazepam NEGATIVE (<25) ng/mL Ur Nordiazepam Confirm 177 H (<50) ng/mL U OH-ethylflurazepam NEGATIVE (<50) ng/mL U Lorazepam Cnf GC/MS NEGATIVE (<50) ng/mL U Oxazepam Confm GC/MS 924 H (<50) ng/mL Ur Temazepam Confirm 323 H (<50) ng/mL U OH-Triazolam Confirm NEGATIVE (<50) ng/mL U OH-Midazolam Confirm NEGATIVE (<50) ng/mL Drug Screen Comment SEE NOTE Medications Administered Current Inpatient Medications Hydrocodone Bitart/Acetaminophen (Hydrocodone/Acetaminophen 7.5/325mg Tab) 1 tab PO Q4H PRN PRN Reason: Pain Stop: 06/16/22 12:16 Last Admin: 06/02/22 23:49 Dose: 1 tab Baclofen (Baclofen 20 Mg Tab) 20 mg PO TID [facility] Stop: 07/02/22 08:59 Last Admin: 06/02/22 20:59 Dose: 20 mg Calcium Carbonate (Calcium Carbonate 1250mg Tab) 1,250 mg PO DAILY [facility] Stop: 07/02/22 08:59 Last Admin: 06/02/22 10:00 Dose: 1,250 mg Calcium/Vitamin D (Calcium 600mg + Vit D 400 Iu Tab) 1 tab PO DAILY [facility] Stop: 07/02/22 08:59 Last Admin: 06/02/22 10:00 Dose: 1 tab Diazepam (Diazepam 5 Mg Tablet) 5 mg PO HS [facility] Stop: 07/02/22 20:59 Last Admin: 06/02/22 20:59 Dose: 5 mg Famotidine (Famotidine 20 Mg Tab) 20 mg PO BID [facility] Stop: 07/02/22 08:59 Last Admin: 06/02/22 20:59 Dose: 20 mg Gabapentin (Gabapentin 300 Mg Cap) 300 mg PO BID [facility] Stop: 07/02/22 08:59 Last Admin: 06/02/22 20:59 Dose: 300 mg Sodium Chloride (Nss 1000ml) 1,000 mls @ 80 mls/hr IV .[id number] Stop: 06/03/22 11:31 Last Admin: 06/03/22 00:16 Dose: 80 mls/hr Magnesium Oxide (Magnesium Oxide 400 Mg Tab) 400 mg PO QAM [facility] Stop: 07/02/22 09:59 Last Admin: 06/02/22 10:00 Dose: 400 mg Multivitamins/Minerals (Cerovite Adv Formula Tab) 1 tab PO DAILY [facility] Stop: 07/02/22 08:59 Last Admin: 06/02/22 10:00 Dose: 1 tab Nitroglycerin (Nitroglycerin Sl 0.4 Mg/Tab Tab) 0.4 mg SL UD PRN PRN Reason: Chest Pain Stop: 07/02/22 04:41 Nystatin (Nystatin Powder 15gm Btl) 1 appln EXT BID [facility] Stop: 07/03/22 08:59 Pantoprazole Sodium (Pantoprazole 40 Mg Tab) 40 mg PO DAILY [facility] Stop: 07/02/22 08:59 Last Admin: 06/02/22 10:00 Dose: 40 mg Polyethylene Glycol (Polyethylene (Miralax) 17 Gm Pack) 17 gm PO DAILY PRN PRN Reason: Constipation Stop: 07/02/22 04:41
[2022-06-03 08:16] LABS: Hematocrit (blood only) 32.1 % (34.1-44.9); Hemoglobin 11.1 g/dl (12.0-16.0); Mean Corpuscular Hemoglobin 30.8 pg (25.0-34.0); Mean Corpuscular Hgb Conc 34.6 g/dL (32.0-36.0); Mean Corpuscular Volume 89.2 fL (80.0-100.0); Platelet Count 394 K/uL (130-400); RDW Standard Deviation 39.2 fL (36.4-46.3); White Blood Count 6.69 K/ul (4.8-10.8)
[2022-06-03 08:39] LABS: BUN Creatinine Ratio 17.4 (10-20); Calcium 8.2 mg/dl (8.5-10.1); Creatinine Clr Calc Pharmacy 117.1 ml/min; Est GFR (African American) 129.8 ml/min; Potassium 3.3 mmol/L (3.5-5.1)
[2022-06-03] MEDS: HYDROCODONE/ACETAMINOPHEN 7.5/325MG TAB PO PRN ×2 (08:58→13:10)
[2022-06-03] MEDS: FAMOTIDINE 20 MG TAB PO SCH ×2 (08:59→21:07)
[2022-06-03] MEDS: CALCIUM CARBONATE 1250MG TAB PO SCH (08:59)
[2022-06-03] MEDS: GABAPENTIN 300 MG CAP PO SCH ×2 (08:59→21:07)
[2022-06-03] MEDS: BACLOFEN 20 MG TAB PO SCH ×3 (09:00→21:07)
[2022-06-03] MEDS: CALCIUM 600MG + VIT D 400 IU TAB PO SCH (09:00)
[2022-06-03] MEDS: CEROVITE ADV FORMULA TAB PO SCH (09:00)
[2022-06-03] MEDS: MAGNESIUM OXIDE 400 MG TAB PO SCH (09:00)
[2022-06-03] MEDS: NYSTATIN POWDER 15GM BTL EXT SCH ×2 (09:01→21:07)
[2022-06-03] MEDS: PANTOprazole 40 MG TAB PO SCH (09:08)
[2022-06-03] MEDS ORDERED: POTASSIUM CHLORIDE CRTAB 20 MEQ TABCR PO STA (12:13)
[2022-06-03] MEDS ORDERED: POTASSIUM CHLORIDE PWD 20 MEQ PACK PO ONE (12:27)
[2022-06-03] MEDS: diazePAM 5 MG TABLET PO SCH (21:06)
[2022-06-03] MEDS: HYDROcodone/ACETAMINOPHEN 10/325 TAB PO PRN (21:07)
[2022-06-04] MEDS: HYDROcodone/ACETAMINOPHEN 10/325 TAB PO PRN ×5 (02:23→23:59)
[2022-06-04 06:12] LABS: 7-Aminoclonaz, Confirm NEGATIVE ng/mL (<25); Codeine Urine NEGATIVE ng/mL (<50); Hydro-Alp Ur, GC/MS NEGATIVE ng/mL (<25); Hydrocodone Urine NEGATIVE ng/mL (<50); Hydromor Urine NEGATIVE ng/mL (<50); Hydroxyethylflurazepam, Conf NEGATIVE ng/mL (<50); Hydroxymidazolam Ur, GC/MS NEGATIVE ng/mL (<50); Hydroxytriazolam NEGATIVE ng/mL (<50); Lorazepam, Ur GC/MS NEGATIVE ng/mL (<50); Morphine Urine NEGATIVE ng/mL (<50); Nordiazepam, Confirm 177 ng/mL (<50); Norhydrocodone Conf Ur NEGATIVE ng/mL (<50); Noroxycodone Urine 5740 ng/mL (<50); Oxazepam Ur, GC/MS 924 ng/mL (<50); Oxycodone Urine 2240 ng/mL (<50); Oxymorph Urine 1220 ng/mL (<50); Temazepam, Confirm 323 ng/mL (<50)
[2022-06-04 07:47] LABS: Hematocrit (blood only) 33.1 % (34.1-44.9); Hemoglobin 11.5 g/dl (12.0-16.0); Mean Corpuscular Hemoglobin 31.3 pg (25.0-34.0); Mean Corpuscular Hgb Conc 34.7 g/dL (32.0-36.0); Mean Corpuscular Volume 90.2 fL (80.0-100.0); Platelet Count 422 K/uL (130-400); RDW Standard Deviation 39.9 fL (36.4-46.3); Red Blood Count 3.67 M/uL (3.93-5.22); White Blood Count 6.84 K/ul (4.8-10.8)
--- NOTE | 2022-06-04 07:52 | Hospitalist Progress Note ---
Date of Service June 04, 2022 Assessment & Plan (1) Back pain: (2) Opiate misuse: (3) Fall: Plan: This is a 57-year-old female who presents with severe back pain and some drowsiness and hyponatremia. 1. Drowsiness: Boyfriend was concerned about overdose. Er ordered _ urine drug screen. The patient is on OxyCodone 15 mg p.o. b.i.d. at home and tramadol, gabapentin, and baclofen. On admission drowsy, somewhat difficult to keep aroused. ABG and CT head- which are unremarkable. Monitor in the tele floor. Patient reported taking oxycodone and tramadol together, and reports she never did that before, now alert oriented answering questions appropriately. Stopped tramadol and oxycodone. Continue gabapentin, baclofen. Pain management was consulted, started patient on hydrocodone/acetaminophen 06/03 Patient is uncomfortable, reports that her pain is not controlled - increased dose of hydrocodone 2. Severe back pain: CT Imaging studies are showing subacute to chronic spine fractures. Pain management consulted Pain management was consulted, started patient on hydrocodone/acetaminophen Orthotics consulted - lso brace, donut/waffle PT/OT 06/03 Patient is uncomfortable, reports that her pain is not controlled - increased dose of hydrocodone 06/04 -increased dose of hydrocodone, patient reports not much helped. Gave prednisone today, and ice pack and patient reports that helped quite a bit. 3. Hyponatremia: Probably pain induced, but the patient also has elevated CK levels at 1800s on admission Probable mild rhabdomyolysis. Received IV fluids on admission, sodium level improved overnight. CK also much improved. Nephrology consult was canceled. Current na 134 Continue to monitor BMP and CK 4. History of gastroesophageal reflux disease: On omeprazole. 5. Tobacco use disorder: counseling. 6. Alcoholism, looks like daily wine as per [employer]. Will discuss further w/ pt. patient is currently on gabapentin 300 3 times daily. No withdrawal symptoms. DISPOSITION: Closely monitor in the tele floor. PT/OT prior to discharge. Code: full code. Admission and Anticipated Discharge Date Admission Date: June 02, 2022 Subjective Pt seen in follow up of back pain, hyponatremia Hyponatremia already much improved Seen by pain management on admission Patient reports that she fell and was drowsy because she took oxycodone and tramadol together. She says she never does that and did not realize it would make her that drowsy. Switched to hydrocodone by pain management. However patient was complaining that her pain was not controlled and asking to increase dose. She is alert oriented, answering appropriately. Hydrocodone dose was increased. In addition she reports that prednisone today helped and ice on her back helped with her symptoms. No chest pain shortness of breath, no abdominal pain nausea vomiting. Review of Systems Review of Systems: All systems reviewed & are unremarkable except as noted in Subjective Physical Exam Physical Exam: GENERAL: The patient is of moderate built, in NAD HEENT:NC, EOMI NECK: No JVD or neck masses. CARDIOVASCULAR: S1 and S2 heard. Regular rate and rhythm. No murmur, no gallop. RESPIRATORY: Normal AP diameter. No accessory muscle use. No wheezing or crackles. ABDOMEN: Soft, bowel sounds present, nontender, no distention. NEURO:Awake and alert, answering appropriately, moves extremities EXTREMITIES: No obvious edema or erythema seen. Results & Data Results & Data ([facility]) Vital Signs (Past 12 Hours) Vital Signs Temp Pulse Pulse Resp BP Pulse Ox O2 Del Method 06/04/22 07:15 36.7 C 75 20 149/80 H 97 Room Air 06/04/22 02:49 36.5 C 46 L 18 152/78 H 98 Room Air 06/03/22 23:11 97 H 06/03/22 22:53 36.8 C 48 L 18 159/103 H 99 Room Air Laboratory Results 06/04/22 06/04/22 06/02/22 Range/Units 07:37 07:37 Unknown WBC 6.84 (4.8-10.8) K/ul RBC 3.67 L (3.93-5.22) M/uL Hgb 11.5 L (12.0-16.0) g/dl Hct 33.1 L (34.1-44.9) % MCV 90.2 (80.0-100.0) fL MCH 31.3 (25.0-34.0) pg MCHC 34.7 (32.0-36.0) g/dL RDW Std Deviation 39.9 (36.4-46.3) fL RDW Coeff of Barney 12.0 (11.5-14.5) % Plt Count 422 H (130-400) K/uL MPV 9.0 L (9.4-12.3) fL Sodium 134 L (136-145) mmol/L Potassium 4.3 D (3.5-5.1) mmol/L Chloride 100 (98-107) mmol/L Carbon Dioxide 29 (21-32) mmol/L Anion Gap 5 (3-11) BUN 7 (6-23) mg/dl Creatinine 0.48 L (0.6-1.2) mg/dl Est Cr Clr Drug Dosing 115.0 ml/min Est GFR ( Amer) 128.0 ml/min Est GFR (Non-Af Amer) 110.4 ml/min BUN/Creatinine Ratio 14.6 (10-20) Glucose 98 (70-99(Fasting)) mg/dl Calcium 8.6 (8.5-10.1) mg/dl Phosphorus 3.5 (2.5-4.9) mg/dl Magnesium 1.8 (1.7-2.4) mg/dl U Codeine Confrm GC/MS NEGATIVE (<50) ng/mL Ur Morphine (GC/MS) NEGATIVE (<50) ng/mL Ur Hydrocodone (GC/MS) NEGATIVE (<50) ng/mL Ur Norhydrocodone NEGATIVE (<50) ng/mL Ur Noroxycodone 5740 H (<50) ng/mL Urine Oxycodone (GC/MS) 2240 H (<50) ng/mL U Oxymorphone GC/MS 1220 H (<50) ng/mL Ur Hydromorphone (GC/MS) NEGATIVE (<50) ng/mL U OH-Alprazolam Confrm NEGATIVE (<25) ng/mL 7-Amino Clonazepam NEGATIVE (<25) ng/mL Ur Nordiazepam Confirm 177 H (<50) ng/mL U OH-ethylflurazepam NEGATIVE (<50) ng/mL U Lorazepam Cnf GC/MS NEGATIVE (<50) ng/mL U Oxazepam Confm GC/MS 924 H (<50) ng/mL Ur Temazepam Confirm 323 H (<50) ng/mL U OH-Triazolam Confirm NEGATIVE (<50) ng/mL U OH-Midazolam Confirm NEGATIVE (<50) ng/mL Drug Screen Comment SEE NOTE Medications Administered Current Inpatient Medications Hydrocodone Bitart/Acetaminophen (Hydrocodone/Acetaminophen 7.5/325mg Tab) 1 tab PO Q4H PRN PRN Reason: Pain Stop: 06/16/22 12:16 Last Admin: 06/03/22 13:10 Dose: 1 tab Hydrocodone Bitart/Acetaminophen (Hydrocodone/Acetaminophen 10/325 Tab) 1 tab PO Q4H PRN PRN Reason: Pain Stop: 06/17/22 17:17 Last Admin: 06/04/22 02:23 Dose: 1 tab Baclofen (Baclofen 20 Mg Tab) 20 mg PO TID [facility] Stop: 07/02/22 08:59 Last Admin: 06/03/22 21:07 Dose: 20 mg Calcium Carbonate (Calcium Carbonate 1250mg Tab) 1,250 mg PO DAILY NALINI Stop: 07/02/22 08:59 Last Admin: 06/03/22 08:59 Dose: 1,250 mg Calcium/Vitamin D (Calcium 600mg + Vit D 400 Iu Tab) 1 tab PO DAILY NALINI Stop: 07/02/22 08:59 Last Admin: 06/03/22 09:00 Dose: 1 tab Diazepam (Diazepam 5 Mg Tablet) 5 mg PO HS [facility] Stop: 07/02/22 20:59 Last Admin: 06/03/22 21:06 Dose: 5 mg Famotidine (Famotidine 20 Mg Tab) 20 mg PO BID [facility] Stop: 07/02/22 08:59 Last Admin: 06/03/22 21:07 Dose: 20 mg Gabapentin (Gabapentin 300 Mg Cap) 300 mg PO BID NALINI Stop: 07/02/22 08:59 Last Admin: 06/03/22 21:07 Dose: 300 mg Magnesium Oxide (Magnesium Oxide 400 Mg Tab) 400 mg PO QAM [facility] Stop: 07/02/22 09:59 Last Admin: 06/03/22 09:00 Dose: 400 mg Multivitamins/Minerals (Cerovite Adv Formula Tab) 1 tab PO DAILY [facility] Stop: 07/02/22 08:59 Last Admin: 06/03/22 09:00 Dose: 1 tab Nitroglycerin (Nitroglycerin Sl 0.4 Mg/Tab Tab) 0.4 mg SL UD PRN PRN Reason: Chest Pain Stop: 07/02/22 04:41 Nystatin (Nystatin Powder 15gm Btl) 1 appln EXT BID [facility] Stop: 07/03/22 08:59 Last Admin: 06/03/22 21:07 Dose: 1 appln Pantoprazole Sodium (Pantoprazole 40 Mg Tab) 40 mg PO DAILY [facility] Stop: 07/02/22 08:59 Last Admin: 06/03/22 09:08 Dose: Not Given Polyethylene Glycol (Polyethylene (Miralax) 17 Gm Pack) 17 gm PO DAILY PRN PRN Reason: Constipation Stop: 07/02/22 04:41
[2022-06-04 08:14] LABS: BUN Creatinine Ratio 14.6 (10-20); Calcium 8.6 mg/dl (8.5-10.1); Est GFR (Non-African American) 110.4 ml/min; Magnesium 1.8 mg/dl (1.7-2.4); Phosphorus 3.5 mg/dl (2.5-4.9); Potassium 4.3 mmol/L (3.5-5.1)
[2022-06-04] MEDS: FAMOTIDINE 20 MG TAB PO SCH ×2 (08:30→19:43)
[2022-06-04] MEDS: GABAPENTIN 300 MG CAP PO SCH ×2 (08:30→19:43)
[2022-06-04] MEDS: BACLOFEN 20 MG TAB PO SCH ×3 (08:30→19:43)
[2022-06-04] MEDS: PANTOprazole 40 MG TAB PO SCH (08:31)
[2022-06-04] MEDS: NYSTATIN POWDER 15GM BTL EXT SCH ×2 (08:36→19:44)
[2022-06-04] MEDS: CALCIUM 600MG + VIT D 400 IU TAB PO SCH (08:40)
[2022-06-04] MEDS: MAGNESIUM OXIDE 400 MG TAB PO SCH (08:40)
[2022-06-04] MEDS: CALCIUM CARBONATE 1250MG TAB PO SCH (08:40)
[2022-06-04] MEDS: CEROVITE ADV FORMULA TAB PO SCH (08:41)
[2022-06-04] MEDS: predniSONE 20 MG TAB PO SCH (09:43)
[2022-06-04] MEDS: diazePAM 5 MG TABLET PO SCH (19:43)
[2022-06-05] MEDS: HYDROcodone/ACETAMINOPHEN 10/325 TAB PO PRN ×3 (04:05→13:54)
[2022-06-05 07:57] LABS: BUN Creatinine Ratio 18.4 (10-20); Calcium 8.6 mg/dl (8.5-10.1); Creatinine Clr Calc Pharmacy 112.7 ml/min; Est GFR (African American) 127.1 ml/min; Est GFR (Non-African American) 109.7 ml/min; Magnesium 1.8 mg/dl (1.7-2.4); Phosphorus 4.1 mg/dl (2.5-4.9); Potassium 3.9 mmol/L (3.5-5.1)
--- NOTE | 2022-06-05 08:22 | Hospitalist Progress Note ---
Date of Service June 05, 2022 Assessment & Plan (1) Back pain: (2) Opiate misuse: (3) Fall: Plan: This is a 57-year-old female who presents with severe back pain and some drowsiness and hyponatremia. 1. Drowsiness: Boyfriend was concerned about overdose. Er ordered _ urine drug screen. The patient is on OxyCodone 15 mg p.o. b.i.d. at home and tramadol, gabapentin, and baclofen. On admission drowsy, somewhat difficult to keep aroused. ABG and CT head- which are unremarkable. Monitor in the tele floor. Patient reported taking oxycodone and tramadol together, and reports she never did that before, now alert oriented answering questions appropriately. Stopped tramadol and oxycodone. Continue gabapentin, baclofen. Pain management was consulted, started patient on hydrocodone/acetaminophen 2. Severe back pain: CT Imaging studies are showing subacute to chronic spine fractures. Pain management consulted Pain management was consulted, started patient on hydrocodone/acetaminophen Orthotics consulted - kasie osborn, josiah/victor m PT/OT 06/03 Patient is uncomfortable, reports that her pain is not controlled - increased dose of hydrocodone 06/04 -increased dose of hydrocodone, patient reports not much helped. Gave prednisone today, and ice pack and patient reports that helped quite a bit. 06/05 -patient much more comfortable, on increased dose of hydrocodone and prednisone. Interested in discharge home. 3. Hyponatremia: Probably pain induced, but the patient also has elevated CK levels at 1800s on admission Probable mild rhabdomyolysis. Received IV fluids on admission, sodium level improved overnight. CK also much improved, and now normalized. Nephrology consult was canceled. Current na 134 4. History of gastroesophageal reflux disease: On omeprazole. 5. Tobacco use disorder: counseling. 6. Alcoholism, looks like daily wine as per [employer].patient is currently on gabapentin 300 3 times daily. No withdrawal symptoms. DISPOSITION: PT/OT - plan to DC home Code: full code. Admission and Anticipated Discharge Date Admission Date: June 02, 2022 Subjective Pt seen in follow up of back pain, hyponatremia Hyponatremia already much improved Seen by pain management on admission Patient reports that she fell and was drowsy because she took oxycodone and tramadol together. She says she never does that and did not realize it would make her that drowsy. Switched to hydrocodone by pain management. However patient was complaining that her pain was not controlled and asking to increase dose. She is alert oriented, answering appropriately. Hydrocodone dose was increased. In addition she reports that prednisone helped and ice on her back helped with her symptoms. No chest pain shortness of breath, no abdominal pain nausea vomiting. She is now comfortable on increased dose of hydrocodone and prednisone. And she would like to be discharged home. Review of Systems Review of Systems: All systems reviewed & are unremarkable except as noted in Subjective Physical Exam Physical Exam: GENERAL: The patient is of moderate built, in NAD HEENT:NC, EOMI NECK: No JVD or neck masses. CARDIOVASCULAR: S1 and S2 heard. Regular rate and rhythm. No murmur, no gallop. RESPIRATORY: Normal AP diameter. No accessory muscle use. No wheezing or crackles. ABDOMEN: Soft, bowel sounds present, nontender, no distention. NEURO:Awake and alert, answering appropriately, moves extremities EXTREMITIES: No obvious edema or erythema seen. Results & Data Results & Data ([facility]) Vital Signs (Past 12 Hours) Vital Signs Temp Pulse Pulse Resp BP BP Pulse Ox 06/05/22 04:09 36.5 C 64 18 135/86 96 06/05/22 00:00 91 H 06/05/22 00:01 36.5 C 48 L 18 156/74 H 100 O2 Del Method 06/05/22 04:09 Room Air 06/05/22 00:00 06/05/22 00:01 Room Air Laboratory Results 06/05/22 Range/Units 06:54 Sodium 134 L (136-145) mmol/L Potassium 3.9 (3.5-5.1) mmol/L Chloride 99 (98-107) mmol/L Carbon Dioxide 29 (21-32) mmol/L Anion Gap 6 (3-11) BUN 9 (6-23) mg/dl Creatinine 0.49 L (0.6-1.2) mg/dl Est Cr Clr Drug Dosing 112.7 ml/min Est GFR ( Amer) 127.1 ml/min Est GFR (Non-Af Amer) 109.7 ml/min BUN/Creatinine Ratio 18.4 (10-20) Glucose 86 (70-99(Fasting)) mg/dl Calcium 8.6 (8.5-10.1) mg/dl Phosphorus 4.1 (2.5-4.9) mg/dl Magnesium 1.8 (1.7-2.4) mg/dl Total Creatine Kinase 157 (26-192) U/L Medications Administered Current Inpatient Medications Hydrocodone Bitart/Acetaminophen (Hydrocodone/Acetaminophen 7.5/325mg Tab) 1 tab PO Q4H PRN PRN Reason: Pain Stop: 06/16/22 12:16 Last Admin: 06/03/22 13:10 Dose: 1 tab Hydrocodone Bitart/Acetaminophen (Hydrocodone/Acetaminophen 10/325 Tab) 1 tab PO Q4H PRN PRN Reason: Pain Stop: 06/17/22 17:17 Last Admin: 06/05/22 04:05 Dose: 1 tab Baclofen (Baclofen 20 Mg Tab) 20 mg PO TID [facility] Stop: 07/02/22 08:59 Last Admin: 06/04/22 19:43 Dose: 20 mg Calcium Carbonate (Calcium Carbonate 1250mg Tab) 1,250 mg PO DAILY NALINI Stop: 07/02/22 08:59 Last Admin: 06/04/22 08:40 Dose: Not Given Calcium/Vitamin D (Calcium 600mg + Vit D 400 Iu Tab) 1 tab PO DAILY NALINI Stop: 07/02/22 08:59 Last Admin: 06/04/22 08:40 Dose: Not Given Diazepam (Diazepam 5 Mg Tablet) 5 mg PO HS NALINI Stop: 07/02/22 20:59 Last Admin: 06/04/22 19:43 Dose: 5 mg Famotidine (Famotidine 20 Mg Tab) 20 mg PO BID NALINI Stop: 07/02/22 08:59 Last Admin: 06/04/22 19:43 Dose: 20 mg Gabapentin (Gabapentin 300 Mg Cap) 300 mg PO BID NALINI Stop: 07/02/22 08:59 Last Admin: 06/04/22 19:43 Dose: 300 mg Magnesium Oxide (Magnesium Oxide 400 Mg Tab) 400 mg PO QAM NALINI Stop: 07/02/22 09:59 Last Admin: 06/04/22 08:40 Dose: Not Given Multivitamins/Minerals (Cerovite Adv Formula Tab) 1 tab PO DAILY NALINI Stop: 07/02/22 08:59 Last Admin: 06/04/22 08:41 Dose: Not Given Nitroglycerin (Nitroglycerin Sl 0.4 Mg/Tab Tab) 0.4 mg SL UD PRN PRN Reason: Chest Pain Stop: 07/02/22 04:41 Nystatin (Nystatin Powder 15gm Btl) 1 appln EXT BID [facility] Stop: 07/03/22 08:59 Last Admin: 06/04/22 19:44 Dose: 1 appln Pantoprazole Sodium (Pantoprazole 40 Mg Tab) 40 mg PO DAILY [facility] Stop: 07/02/22 08:59 Last Admin: 06/04/22 08:31 Dose: 40 mg Polyethylene Glycol (Polyethylene (Miralax) 17 Gm Pack) 17 gm PO DAILY PRN PRN Reason: Constipation Stop: 07/02/22 04:41 Prednisone (Prednisone 20 Mg Tab) 40 mg PO QAM [facility] Stop: 07/04/22 08:59 Last Admin: 06/04/22 09:43 Dose: 40 mg
[2022-06-05] MEDS: FAMOTIDINE 20 MG TAB PO SCH (09:37)
[2022-06-05] MEDS: BACLOFEN 20 MG TAB PO SCH ×2 (09:37→13:55)
[2022-06-05] MEDS: predniSONE 20 MG TAB PO SCH (09:37)
[2022-06-05] MEDS: PANTOprazole 40 MG TAB PO SCH (09:37)
[2022-06-05] MEDS: GABAPENTIN 300 MG CAP PO SCH (09:37)
[2022-06-05] MEDS: NYSTATIN POWDER 15GM BTL EXT SCH (09:38)
[2022-06-05] MEDS: CALCIUM 600MG + VIT D 400 IU TAB PO SCH (09:41)
[2022-06-05] MEDS: CALCIUM CARBONATE 1250MG TAB PO SCH (09:42)
[2022-06-05] MEDS: CEROVITE ADV FORMULA TAB PO SCH (09:42)
[2022-06-05] MEDS: MAGNESIUM OXIDE 400 MG TAB PO SCH (09:42)
--- NOTE | 2022-06-05 13:30 | Discharge Summary ---
Date of Service June 05, 2022 Admission HPI Per Admitting Provider This is a 57-year-old female with past medical history significant for GERD, history of kidney stones, osteoporosis with pathological fractures, chronic back pain, tobacco use disorder, who presents complaining of back pain and her boyfriend brought her to the hospital, as she was slow to respond, for possible overdose. The patient is on MS Contin 15 mg p.o. b.i.d., tramadol as needed, baclofen, Advil for pain medications. She also recently started on diazepam. The patient is somewhat crouching on the bed. She says in this position, her back pain is okay, but whenever she starts moving and ambulating, the pain is severe. She is somewhat drowsy, has to wake up frequently to give the answers, but when she answers she is answering appropriately. Denies any fevers, no chest pain, no shortness of breath, no cough, no nausea. Normal bowel and bladder movements. No incontinence. No swelling in the legs. Appetite is okay. No runny nose, no sore throat. Hemodynamics are okay in the ER.denies taking any extra medication Admission Exam Per Admitting Provider GENERAL: The patient is of moderate built, somewhat drowsy, alert. VITAL SIGNS: Temperature 36.7, pulse 88, respiratory rate 20, blood pressure 133/79, oxygen 97% on room air. HEENT: Difficult to examine as the patient is crouching and not lifting her head up. No trauma seen. No facial droop seen. NECK: No JVD or neck masses. CARDIOVASCULAR: S1 and S2 heard. Regular rate and rhythm. No murmur, no gallop. RESPIRATORY SYSTEM: Normal AP diameter. No accessory muscle use. No wheezing or crackles. ABDOMEN: Soft, bowel sounds present, nontender, no distention. CENTRAL NERVOUS SYSTEM: Drowsy, but arousable, and alert when aroused, answering appropriately. Obeys simple commands. Moves extremities. EXTREMITIES: No obvious edema or erythema seen. Principal Diagnosis Fall, back pain, opiate medication misuse Vertebral compression fractures, sacral insufficiency fracture, osteoporosis history Hyponatremia Discharge Exam GENERAL: The patient is of moderate built, in NAD HEENT:NC, EOMI NECK: No JVD or neck masses. CARDIOVASCULAR: S1 and S2 heard. Regular rate and rhythm. No murmur, no gallop. RESPIRATORY: Normal AP diameter. No accessory muscle use. No wheezing or crackles. ABDOMEN: Soft, bowel sounds present, nontender, no distention. NEURO:Awake and alert, answering appropriately, moves extremities EXTREMITIES: No obvious edema or erythema seen. Discharge Data Allergies Allergy/AdvReac Type Severity Reaction Status Date / Time sulfamethoxazole Allergy Intermediate Rash Verified 06/01/22 23:01 [From Bactrim] trimethoprim [From Bactrim] Allergy Intermediate Rash Verified 06/01/22 23:01 Penicillins Allergy Unknown CAN'T Verified 06/01/22 23:01 REMEMBER Consultations 06/02/22 01:21 ED Decision to Admit Stat 06/02/22 08:00 Consult Pain Management Routine Ordered Studies 06/01/22 21:55 CT lumbar spine wo con Urgent FINDINGS: Multiple compression deformities are again seen throughout the lower thoracic and lumbar spine. These are similar to the prior radiograph. These are technically age indeterminate but favor chronic compression deformities. No significant paravertebral edema. There may be mild presacral edema with evidence of a subacute/healing sacral insufficiency fracture involving the S2 vertebral body and vital sacral wings. No high-grade central canal stenosis. IMPRESSION: 1. Compression fractures throughout all of the lower thoracic and lumbar spine vertebral bodies. These are technically age indeterminate but likely chronic. 2. Sacral insufficiency fracture which appears subacute. CT thoracic spine wo con Urgent FINDINGS: This exam was compromised due to difficulty positioning. There is exaggerated kyphosis of the thoracic spine. There is severe compression fractures of T10 and T11. There is a moderate T12 compression fracture. These fractures are likely old. There is minimal retropulsion of the superior endplate of T11. Lumbar spine fractures are better depicted on the lumbar spine CT. No acute thoracic spine fracture is noted. The central canal and neural foramen are suboptimally assessed given CT technique. Mild multilevel degenerative changes are present. No significant abnormalities are identified within visualized portions of the lungs. No acute fractures within the posterior ribs are identified. IMPRESSION: 1. Numerous lower thoracic spine compression fractures, as described above. Although technically age indeterminate, these are likely old. No acute thoracic spine fracture. Exaggerated kyphosis. 2. Numerous lumbar spine fractures, better depicted on the lumbar spine CT. 06/02/22 04:42 CT head/brain wo con Urgent FINDINGS: No acute intracranial hemorrhage, midline shift or mass effect is present. The ventricular system is unremarkable. The basal cisterns are patent. No extra-axial collections are present. There are no findings to suggest acute dural sinus thrombosis or acute territorial infarct. No significant calvarial abnormalities are present. There is minimal sinus mucosal thickening. IMPRESSION: No acute intracranial findings. Hospital Course (1) Back pain: (2) Opiate misuse: (3) Fall: This is a 57-year-old female who presents with severe back pain and some drowsiness and hyponatremia. 1. Drowsiness: Boyfriend was concerned about overdose. Er ordered _ urine drug screen. The patient is on OxyCodone 15 mg p.o. b.i.d. at home and tramadol, gabapentin, and baclofen. On admission drowsy, somewhat difficult to keep aroused. ABG and CT head- which are unremarkable. Monitor in the tele floor. Patient reported taking oxycodone and tramadol together, and reports she never did that before, now alert oriented answering questions appropriately. Stopped tramadol and oxycodone. Continue gabapentin, baclofen. Pain management was consulted, started patient on hydrocodone/acetaminophen 2. Severe back pain: CT Imaging studies are showing subacute to chronic spine fractures. Pain management consulted Pain management was consulted, started patient on hydrocodone/acetaminophen Orthotics consulted - edino brabobby, josiah/victor m PT/OT 06/03 Patient is uncomfortable, reports that her pain is not controlled - increased dose of hydrocodone 06/04 -increased dose of hydrocodone, patient reports not much helped. Gave prednisone today, and ice pack and patient reports that helped quite a bit. 06/05 -patient much more comfortable, on increased dose of hydrocodone and prednisone. Interested in discharge home. 3. Hyponatremia: Probably pain induced, but the patient also has elevated CK levels at 1800s on admission Probable mild rhabdomyolysis. Received IV fluids on admission, sodium level improved overnight. CK also much improved, and now normalized. Nephrology consult was canceled. Current na 134 4. History of gastroesophageal reflux disease: On omeprazole. 5. Tobacco use disorder: counseling. 6. Alcoholism, looks like daily wine as per [employer].patient is currently on gabapentin 300 3 times daily. No withdrawal symptoms. Total Time Total Time Spent Total Time Spent (In Minutes): 40 Discharge Plan Discharge Items Patient Disposition: Home - Self-Care Reason For Visit: BACK PAIN Discharge Diagnosis: Fall, back pain, opiate medication misuse Vertebral compression fractures, sacral insufficiency fracture, osteoporosis history Hyponatremia Condition on Discharge: Fair Activity: Per Instructions section Non-emergency contact: Primary Care Provider Call non-emergency contact if: you have any medication questions and your symptoms worsen Follow-up/Referrals: Amrita Jara DO [Primary Care Provider] - Diet: Regular Addtl Attending Provider Instructions: Follow-up with primary care physician within next couple of days and with pain management as needed. Do not take any tramadol or oxycodone anymore. You were switched to hydrocodone by the pain management. Continue taking hydrocodone as prescribed, in addition take prednisone taper as prescribed. Pending Studies at Discharge: No Stand-Alone Forms: [facility], Smoking Cessation Medications and DC Order Prescriptions: New prednisone 10 mg tablet 10 mg PO DIRECTED Qty: 16 0RF Rx Instructions: see taper instructions- take 4 tabs tomorrow (06/06), then take 3tabs for 2 days, then 2 tabs for 2 days, then 1 tab for 2 days hydrocodone-acetaminophen 10-325 mg Tablet 1 tab PO Q4H PRN (Reason: pain) Qty: 14 0RF Continued gabapentin 300 mg capsule 300 mg PO BID omeprazole magnesium [Prilosec OTC] 20 mg Tablet,Delayed Release (Dr/Ec) 20 mg PO DAILY Centrum Silver Women 8 mg iron-400 mcg-300 mcg Tablet 1 tab PO DAILY acetaminophen [Tylenol Extra Strength] 500 mg Tablet 500 mg PO DIRECTED PRN (Reason: Pain) ibuprofen [Advil] 200 mg Tablet 800 mg PO Q6H PRN (Reason: Pain, Moderate) baclofen 20 mg tablet 20 mg PO TID calcium carbonate-vitamin D3 600 mg(1,500mg) -200 unit tablet 1 tab PO DAILY famotidine [Pepcid] 20 mg Tablet 20 mg PO BID calcium carbonate [Calcium 500] 500 mg calcium (1,250 mg) Tablet 1,500 mg PO DAILY diazepam 5 mg tablet 5 mg PO HS Discontinued oxycodone 15 mg tablet 15 mg PO BID tramadol 50 mg Tablet 50 mg PO DIRECTED PRN (Reason: Pain) Discharge Orders: Discharge Order (Routine); Ordered 06/05/22 Ordered By: Harley Boateng Admission Data Admit Date/Time: 06/02/22 02:22 Attending Provider: Harley Boateng Admit Provider: Nickolas Valle Primary Care Provider: Amrita Jara Other Providers: Nickolas Valle ; Navid Coffey ; Ld Hurtado
== END 2022-06-05 14:58 | disposition home or self-care (01) | DRG 641 ==
LOC: ED 21:43 → SUATTDRO 06-02 02:22 → EDINP 06-02 02:22 → 2S 06-02 13:06